=== PATIENT | male | born 1945 | race Caucasian/White ===

== ENCOUNTER 2019-08-08 13:59 | Emergency (ER) | payer MEDICARE, OTHER, SELFPAY ==
[2019-08-08] VITALS (9 sets, daily range): BP systolic 141–165; BP diastolic 49–90; PULSE 77–88; RESP 15–22; TEMP 36.5–36.7; O2SAT 91–96; BMI 36.0
--- NOTE | 2019-08-08 14:40 | EKG12_ITS ---
Test Reason : DYSRHYTHMIA Blood Pressure : / mmHG Vent. Rate : 075 BPM Atrial Rate : 075 BPM P-R Int : 196 ms QRS Dur : 178 ms QT Int : 440 ms P-R-T Axes : 041 002 175 degrees QTc Int : 491 ms Sinus rhythm with Premature atrial complexes in a pattern of bigeminy Left bundle branch block Abnormal ECG Confirmed by BO ZACARIAS, KALPANA ([id number]), field map editor PRINCESS GOMEZ ([id number]) on 08/11/2019 11:33:58 AM Referred By: TAMICA Confirmed By:KALPANA SORIANO MD
--- NOTE | 2019-08-08 14:44 | ED.VISSUMM ---
- ER Visit Summary Date of Service: 08/08/19 Chief Complaint: Cough and shortness of breath History of Present Illness: The patient is a 74 M history of hypertension high cholesterol. Prior pneumonia. Patient states for 1 week he has had primarily nonproductive cough at times it is clear phlegm. Denies any fever or chills. No chest pain. No pleuritic chest pain. He does state he has shortness of breath. Is making it more difficult for him to sleep. He denies any leg swelling or leg pain. No history of DVT or PE. No recent travel, surgery or immobilization. His last hospitalization was in January. At that time he had bilateral pneumonia. Physical Examination: Elderly male vital signs are stable on oxygen is 96%. No hypoxia on oxygen. HEENT exam unremarkable. Moist with membranes. Neck nontender no JVD. Lungs dry cough with prolonged expiratory phase and expiratory wheezing. No rales or rhonchi. Equal symmetrical. Heart regular rhythm rate about 80 no murmur. Abdomen is obese but soft nontender normal bowel sounds no peritoneal signs. Extremities moves all 4. Calves nontender without edema or cords. Neurologically she is awake and alert with no focal motor deficits. Test Results: EKG shows a sinus rhythm with PACs and a left bundle branch block. Chest x-ray 2 view read by myself shows no acute abnormality. Chronic changes. No pneumonia. CBC White count 8. Hemoglobin 12. No bands. Chemistries unremarkable normal creatinine and gap. Troponin normal. Emergency Department Course and Treatment: Gentleman with clinically what appears to be a respiratory tract infection with expiratory wheezing. Will be treated with aerosols both DuoNeb and albuterol. P.o. prednisone and have screening labs along with an EKG and chest x-ray performed. Also p.o. Zithromax. Repeat exam at 1555 patient is doing well. He was treated with aerosols and p.o. prednisone. Currently his wheezing is resolved. States he is feeling better. Both he and his account with him being discharged home. Treatment Plan: Prednisone 40 mg a day for 1 week. He has an inhaler at home. Zithromax Z-NETO first dose given in the ER. Follow-up with his doctor return if worse. Disposition: Discharge Impression: Acute bronchitis with bronchospasm This note was generated with [employer] software. It may contain incorrect words, spelling, and punctuation that were not noted in review of the chart prior to signing ED Disposition - Plan for ED Patient: Referrals: Dustin Stevenson MD [Primary Care Provider] -
[2019-08-08] MEDS: Ipratropium/Albuterol Sulfate 3 ML AMPUL.NEB INHALATION (14:51)
[2019-08-08] MEDS: Albuterol 2.5 MG/3 ML VIAL.NEB. INHALATION ×3 (14:51)
[2019-08-08 14:58] LABS: Absolute Lymphocyte Count 4.11 X10^3/uL (0.83-4.51); Absolute Neutrophil Count 3.6 X10^3/uL (2.0-7.7); Basophil# 0.03 X10^3/uL; Basophil% 0.4 % (0-1); Eosinophil# 0.12 X10^3/uL; Eosinophils% 1.4 % (0-5); Hematocrit 37.5 % (40-54); Hemoglobin 12.6 g/dL (13.0-16.5); Lymphocyte # 4.11 X10^3/ul (4.0); Lymphocyte % 48.1 % (19-41); Mean Corp Hgb Conc 33.6 g/dL (32-36); Mean Corpuscular Hgb 32.2 pg (27.0-32.0); Mean Corpuscular Volume 95.9 fL (80-94); Mean Platelet Vol. 7.5 fl (6.2-12.0); Monocyte# 0.66 X10^3/uL; Monocyte% 7.7 % (0-10); NRBC Flagged by Analyzer 0 % (0-5); Platelet Count 175 K/mm3 (150-450); RBC Distribution Width CV 12.2 % (11.6-14.6); RBC Distribution Width SD 42.5 fl (35.1-43.9); Red Blood Count 3.91 M/mm3 (4.6-6.2); White Blood Count 8.6 K/mm3 (4.4-11.0)
[2019-08-08] MEDS: predniSONE 20 MG Tablet 60 MG PO (15:03)
[2019-08-08 15:12] LABS: Anion Gap 8 (5-15); BUN 11 mg/dL (7-18); BUN/Creat Ratio 14.8 RATIO (10-20); Calcium,Total 9.3 mg/dL (8.5-10.1); Chloride 107 mmol/L (98-107); Creatinine, Serum 0.74 mg/dL (0.70-1.30); EST Glomerular Filtration Rate 109 mL/min (>60); Est Glom Filt Rate - Afr Amer 132 mL/min (>60); Glucose 160 mg/dL (74-106); Potassium 3.2 mmol/L (3.5-5.1); Sodium Level 143 mmol/L (136-145)
--- NOTE | 2019-08-08 15:30 | RAD_ITS ---
STUDY: X-RAY CHEST REASON FOR EXAM: Male, 74 years old. Short of breath TECHNIQUE: PA and lateral COMPARISON: None. FINDINGS: Lungs are hyperinflated and there is mild interstitial thickening in the lower lobes.. There is no demonstrated pleural abnormality. Normal size heart. Normal mediastinum and mary. Normal visualized pulmonary arteries. Tortuous aortic arch and descending thoracic aorta. Dorsal spine demonstrates mild spondylosis. Normal visualized ribs, clavicles, and shoulders. There is no demonstrated abnormality of the visualized soft tissue structures of the upper abdomen. RAD/Chest PA and Lateral IMPRESSION: COPD. No acute cardiopulmonary pathology Electronically Signed: Dustin Lopez MD at 16:52 EST , Service support ,
--- NOTE | 2019-08-08 16:02 | ED.DEP ---
ED Disposition - Plan for ED Patient: Disposition: Home or Assisted Living Instructions: BRONCHITIS, Antiobiotic Treatment (Adult) Prescriptions: Prednisone [Deltasone] 40 mg PO DAILY 7 Days #7 tab Prescription Printed Azithromycin [Zithromax] 250 mg PO DAILY #4 tab Prescription Printed Referrals: Dustin Stevenson MD [Primary Care Provider] - 3-5 Days Additional Instructions: Zithromax antibiotic 1 pill a day start tomorrow. First dose given here today in the ER. Prednisone 40 mg once a day start tomorrow first dose given in ER today. Use your inhaler 2 puffs every 2-4 hours as needed. Follow-up with your doctor if not improving return to ER feeling worse.
[2019-08-08] MEDS: Azithromycin 250 MG Tablet 500 MG PO (16:23)
--- NOTE | 2019-08-08 16:51 | ED.RN ---
pt ambulated with pulse ox and dropped to 87%. Dr Saldana notified and went into room to re-evaluate pt and was okay with discharging pt. Pt aware and okay with going home.
== END 2019-08-08 16:53 | disposition home or self-care (01) ==
PROVIDERS: Emergency Provider Emergency Medicine; Family Provider Family Medicine; PCP Family Medicine
DX: J44.0 Chronic obstructive pulmonary disease with (acute) lower respiratory infection (principal); J20.9 Acute bronchitis, unspecified; E78.00 Pure hypercholesterolemia, unspecified; I10 Essential (primary) hypertension; I44.7 Left bundle-branch block, unspecified; Z87.01 Personal history of pneumonia (recurrent)
CPT/HCPCS: 71046; 80048; 84484; 85025; 93005; 94640; 99251; 99285; G0463

== ENCOUNTER 2020-12-03 06:11 | Day surgery (SDC) | payer MEDICARE, OTHER, SELFPAY ==
[2020-11-15 13:20] VITALS: BMI 39.9
[2020-12-03] VITALS (7 sets, daily range): BP systolic 114–157; BP diastolic 59–79; PULSE 65–94; RESP 16–18; TEMP 36.3–36.7; O2SAT 92–98; BMI 38.2
--- NOTE | 2020-12-03 | COLBX_PTH ---
PATIENT: TESS DIA LOC: EN U#:[id number] AGE/SX: 75/M ROOM: RE12/03/[address]: Dr. Kam Burrell MD : 1945 BED: DIS: 12/03/2020 SPEC #: [id number] RECD: 12/03/20 11:56 STATUS: MANUEL BONIFACIO #: [id number] GRISELDA: 12/03/20 00:[address]: Kam Burrell DEPT: SURGICAL PATHOLOGY RECD BY: Florentin Morillo ENTERED: 12/03/20 11:57 SP TYPE: COLON BX OTHR DR: Dr. Dustin Stevenson MD Tissues: A - Duodenum, NOS B - Gastric mucous membrane C - Esophageal mucous membrane D - Transverse colon Procedures: Surgery Specimen Level IV HEADER OPERATION: Colonoscopy, EGD ([facility] [place]) PRE-OP DIAGNOSIS: GERD, history colon polyps TISSUE SUBMITTED: A - Duodenum biopsy, B - Antrum biopsy for H. pylori and path, C - Distal esophagus biopsy, D - Mid transverse colon snare MICROSCOPIC DIAGNOSIS A. Duodenum, biopsy: Minimal nonspecific chronic inflammation. B. Gastric antrum, biopsy: Mild chronic gastritis. See comment. C. Distal esophagus, biopsy: Fragment of benign squamous mucosa. No evidence of inflammation. D. Mid transverse colon, biopsy: Tubular adenoma. AM:sho 12/06/2020 COMMENT B. The results of immunohistochemistry for Helicobacter pylori will be reported separately ([id number]). MICROSCOPIC DESCRIPTION Slides are reviewed. GROSS DESCRIPTION A - Received in fixative is one container labeled with the patient's name and designated duodenum biopsy. The specimen consists of one irregular fragment of light hodge soft tissue that measures 0.3 x 0.3 x 0.1 cm. The specimen is totally submitted in one cassette. B - Received in fixative is one container labeled with the patient's name and designated antrum biopsy. The specimen consists of one irregular fragment of light hodge soft tissue that measures 0.3 x .2 x 0.1 cm. The specimen is totally submitted in one cassette. C - Received in fixative is one container labeled with the patient's name and designated distal esophagus biopsy. The specimen consists of one irregular fragment of light hodge soft tissue that measures 0.7 x 0.3 x 0.1 cm. The specimen is totally submitted in one cassette. D - Received in fixative is one container labeled with the patient's name and designated mid transverse biopsy. The specimen consists of two irregular fragments of light hodge soft tissue that in aggregate measure 0.6 x 0.3 x 0.1 cm. The specimen is totally submitted in one cassette. / SJ:rg 12/03/20 TC:3 CPT: 03251 x4
--- NOTE | 2020-12-03 06:21 | PCM.HP.BLA ---
Problem List (1) Personal history of colonic polyps Status: Acute (2) Gastroesophageal reflux disease Status: Acute Qualifiers: History and Physical Date of Admission: 12/03/20 Intake Visit Reasons: CSCOPE, EGD, DUE 5 YEARS Chief Complaint: consult for EGD/c-scope Eye Specialist Required: No Is patient in pain?: No Allergies No Known Allergies Allergy (Verified 11/15/20 13:21) Medications Aspirin [Aspir 81] 81 mg PO DAILY 08/08/19 [History Confirmed 11/15/20] Atorvastatin Calcium [Lipitor] 40 mg PO QHS 08/08/19 [History Confirmed 11/15/20] Cetirizine HCl [Zyrtec] 10 mg PO DAILY 08/08/19 [History Confirmed 11/15/20] Ferrous Sulfate 325 mg PO DAILY 08/08/19 [History Confirmed 11/15/20] Finasteride 5 mg PO DAILY 08/08/19 [History Confirmed 11/15/20] Gabapentin [Neurontin] 900 mg PO BIDCM 08/08/19 [History Confirmed 11/15/20] Lisinopril 40 mg PO DAILY 08/08/19 [History Confirmed 11/15/20] Naproxen [Naprosyn] 500 mg PO BID PRN PRN 08/08/19 [History Confirmed 11/15/20] Omeprazole [Prilosec] 20 mg PO DAILY 08/08/19 [History Confirmed 11/15/20] Proventil Hfa 08/08/19 [History Confirmed 11/15/20] Saw [place] 80 mg TID 08/08/19 [History Confirmed 11/15/20] Terazosin HCl 10 mg PO QHS 08/08/19 [History Confirmed 11/15/20] amlodipine 5 mg tablet 10 mg PO DAILY tab 11/15/20 [History Confirmed 11/15/20] ascorbic acid (vitamin C) 1,000 mg tablet 1 g PO BID tab 11/15/20 [History Confirmed 11/15/20] cholecalciferol (vitamin D3) 100 mcg (4,000 unit) capsule 100 mcg PO DAILY 11/15/20 [History] escitalopram oxalate 10 mg tablet 10 mg PO DAILY 11/15/20 [History Confirmed 11/15/20] fluticasone propionate 50 mcg/actuation nasal spray,suspension 2 spray INTRANASAL DAILY PRN 11/15/20 [History Confirmed 11/15/20] omega-3 fatty acids-fish oil 360 mg-1,200 mg capsule 1 cap PO BID 11/15/20 [History Confirmed 11/15/20] [facility] Medical History Arthritis (Acute) GERD (gastroesophageal reflux disease) (Acute) Heart murmur (Acute) Hemorrhoids (Acute) History of back problems (Acute) History of colon polyps (Acute) Sleep apnea (Acute) Hypertension (Chronic) Family History (Updated 11/15/20 @ 13:19 by Shannon Gil) Mother Hypertension Father CVA (cerebral vascular accident) Social History (Updated 11/15/20 @ 13:[address] Kam Burrell MD) Smoking Status: Never smoker alcohol intake: never substance use type: does not use HPI HPI HPI: TESS DIA, is a 75 M who presents to the office today for surgical consultation regarding chronic gastroesophageal reflux disease as well as a personal history of colon polyps. The patient is referred by Renée Page CNP and a written copy of my surgical consult and recommendations will return to her. The patient does have some memory deficit. He has been on long-term proton pump inhibitors. Most recent upper endoscopy December [address] Gianluca Meredith. Erythematous to adenopathy was identified at that time. Colonoscopy was performed the same day. Diverticulosis was identified. The patient has had a previous history of colon polyps prior to that. He denies history of colon cancer. No family history of colon cancer. His medications include iron supplementation and Lipitor and omega-3 fatty acid and enteric-coated aspirin as well as his omeprazole 20 mg daily. He is on lisinopril 40 mg daily. He denies any hospitalization over the past year. He denies any weight loss. He has not noticed any bright red blood per rectum or melena. He denies any current problems with abdominal pain. He otherwise states that his health is relatively stable. He gets a combination of his health care via the [place] [facility] as well as private care physician Dr. Dustin Stevenson. Recent laboratory does not demonstrate any anemia. Lipid panel slightly abnormal. BMI is 40 HPI HPI HPI: TESS DIA, is a 75 M who presents to the office today for ROS General General: No weight change, appetite, fatigue, colon cancer, breast cancer or weakness HEENT HEENT: Yes eye surgery; no difficulty swallowing, eye injury, swollen glands or hoarseness Endo Endocrine: No thyroid disease, diabetes mellitus, thyroid cancer, Hair loss, heat intolerance or cold intolerance Skin Skin: Yes changing moles; no rash Breast Breast: No left breast lump, right breast lump, nipple discharge, breast pain, abnormal mammogram, abnormal US or breast enlargement Musc Musculoskeletal: Yes back problems and arthritis; no rheumatoid arthritis, gout or joint pain Cardio Cardiovascular: Yes murmur and high blood pressure; no pacemaker, heart disease, atrial fibrillation, heart attack, heart stent, palpitations, shortness of breat with exertion or chest pain Psych Psychiatric: No depression, anxiety or hearing voices Resp Respiratory: No shortness of breath, Yes sleep apnea, No cough, No COPD, No asthma, No emphysema, No wheezing Gastro Gastrointestinal: No abdominal pain, No nausea or vomiting, No diarrhea, No constipation, No blood in stool, No acid reflux, Yes hemorrhoids, No ulcers, No gallbladder problem, No black,tarry stools Rogelio Hematologic: No blood thinners, No blood disorders, No bleeding, No anemia, No blood clots Neuro Neurologic: No system reviewed and no additional complaints, except as docu, No as per HPI, No abnormal walking, No abnormal hearing, No abnormal movements, No abnormal speech, No behavioral changes, No burning sensations, No confusion, No seizure-like activity, No unsteadiness, No dizziness, No localized weakness, No frequent falls, No headache(s), No lack of coordination, No loss of vision, No memory loss, No numbness, No other visual disturbances, No radiating pain, No restless legs, No sensory deficit, No fainting, No tingling, No tremor(s), No weakness, No other Exam Const General: cooperative, comfortable, no acute distress Nutritional Appearance: obese morbidly obese Orientation: alert, awake [facility] Head: normal to inspection Neck Neck: normal visual inspection Chest Chest palpation & inspection: normal inspection of the chest Breast Palpation: No nipple discharge Resp Effort & Inspection: normal respiratory effort Auscultation: clear to auscultation bilaterally Cardio Rate: regular rate Rhythm: regular rhythm Heart Sounds: murmur GI Palpation: soft Auscultation: normal bowel sounds Musc Cervical Spine: normal cervical lordosis Skin General: no rashes or lesions noted Neuro General: alert, awake Extrem Other: Mild nonpitting bilateral lower extremity swelling Psych Appearance: grossly normal Assessment & Plan Problems 1. Gastroesophageal reflux disease, unspecified whether esophagitis present K21.9 2. Personal history of colonic polyps Z86.010 Plan 75-year-old gentleman. He does admit that his memory is waning. He states that he takes his medicines because that is what he is instructed to do. I think it is reasonable to offer him a combined esophagogastroduodenoscopy with possible biopsy and colonoscopy with possible biopsy or polypectomy as indicated. I described the technique, benefit, risk, alternatives. He does have some medical comorbidities. I would want to use monitored anesthesia care. We would want to use an adult colonoscope. He has had an opportunity to ask no questions answered. We will schedule procedure at his discretion. I appreciate the opportunity of assisting with his surgical care. Copy: Renée Page CNP and Dr. Dustin Stevenson and [facility] Kam Burrell M.D., F.A.C.S. Coding Level of Care Code 81240 Diagnoses Gastroesophageal reflux disease, unspecified whether esophagitis present K21.9 ??Esophagitis presence: esophagitis presence not specified Personal history of colonic polyps Z86.010 I have re-examined the patient. There are no clinical changes since date of exam. Procedure Criteria Procedure Type: Elective COVID Risk Discussion: The surgeon/proceduralist and patient have discussed in detail the risk of exposure to and/or potential harm posed by the COVID-19 virus with having a surgery/procedure at this time versus the risk of delaying the surgery/procedure. It is not possible to know either the risk of delaying the surgery or procedure or chance of getting an infection with perfect accuracy, but a joint decision was made between the patient and the surgeon/proceduralist to proceed at this time with the scheduled surgery/procedure as indicated on the consent form.
[2020-12-03] MEDS: Lactated Ringers 1,000 ML 100 ML IV (07:14)
--- NOTE | 2020-12-03 08:00 | IMM_PTH ---
PATIENT: TESS DIA LOC: EN U#:[id number] AGE/SX: 75/M ROOM: RE12/03/[address]: Dr. Kam Burrell MD : 1945 BED: DIS: 12/03/2020 SPEC #: [id number] RECD: 12/03/20 12:07 STATUS: MANUEL REJessie #: [id number] GRISELDA: 12/03/20 08:[address]: Kam Burrell DEPT: IMMUNOHISTOCHEMISTRY RECD BY: Lisset Thurston ENTERED: 12/03/20 12:07 SP TYPE: IMMUNO OTHR DR: Dr. Dustin Stevenson MD Tissues: B - Stomach, NOS Procedures: H Pylori (initial) PHYSICIAN & INSTITUTION [place] [id number] SPECIMEN INFORMATION: Tissue Source: B - Antrum biopsy Clinical Info: GERD, history colonic polyps Specimen Number: [id number] CPT code: 96660 METHODOLOGY: Deparaffinized sections of prefer/formalin-fixed tissue or PAP/DQ stained slides are incubated with monoclonal/polyclonal antibodies/oligonucleotide probes. Localization is made via biotin free immunoperoxidase method. Appropriate controls are performed and reacted as expected. Results on target cell population are indicated in the following table: RESULTS: ANTIBODY / CLONE RESULT Block B H Pylori (polyclonal) negative These tests were developed and their performance characteristics determined by [facility]. They may not have been cleared or approved by the U.S. Food and Drug Administration. The FDA has determined that such clearance or approval is not necessary. INTERPRETATION: B. Antrum biopsy: Negative for Helicobacter pylori organisms. AM:sho 12/06/2020
--- NOTE | 2020-12-03 08:40 | OP.CCLET_ITS ---
12/03/2020 Dustin Stevenson MD Re : Upper GI endoscopy procedure for Tamir Rossi Dear Dr. Stevenson This procedure was performed on Thursday, December 03, 2020. My impressions and recommendations are as follows: Impressions : - Reflux esophagitis. Biopsied. - Moderate hiatal hernia. - Erythematous mucosa in the antrum. Biopsied. - Erythematous duodenopathy. Biopsied. Recommendations : - Discharge patient to home. - Resume previous diet. - Continue present medications. - Telephone my office for pathology results in 1 week. My findings are described in the full procedure note, which is enclosed. If I can be of further assistance, please feel free to contact me at Doctor phone number(s): Work: . Sincerely, Kam Burrell MD 12/03/2020 8:40:08 AM This report has been signed electronically.
--- NOTE | 2020-12-03 08:40 | OP.EGD_ITS ---
Patient Name: Tamir Rossi Procedure Date: 12/03/2020 7:57 AM Date of : 1945 Age: 75 Procedure: Upper GI endoscopy Indications: Heartburn Providers: Kam Burrell MD Referring MD: Dustin Stevenson MD Medicines: See the Anesthesia note for documentation of the administered medications Complications: No immediate complications. Procedure: Pre-Anesthesia Assessment: - Prior to the procedure, a History and Physical was performed, and patient medications and allergies were reviewed. The patient's tolerance of previous anesthesia was also reviewed. The risks and benefits of the procedure and the sedation options and risks were discussed with the patient. All questions were answered, and informed consent was obtained. Prior Anticoagulants: The patient has taken no previous anticoagulant or antiplatelet agents. ASA Grade Assessment: II - A patient with mild systemic disease. After reviewing the risks and benefits, the patient was deemed in satisfactory condition to undergo the procedure. After obtaining informed consent, the endoscope was passed under direct vision. Throughout the procedure, the patient's blood pressure, pulse, and oxygen saturations were monitored continuously. The gastroscope was introduced through the mouth, and advanced to the second part of duodenum. The upper GI endoscopy was accomplished without difficulty. The patient tolerated the procedure well. Scope In: 8:07:27 AM Scope Out: 8:11:18 AM Total Procedure Duration Time 0 hours 3 minutes 51 seconds Findings: Esophagitis with no bleeding was found 44 cm from the incisors. Biopsies were taken with a cold forceps for histology. A moderate hiatal hernia was present. Diffuse mildly erythematous mucosa without bleeding was found in the gastric antrum. Biopsies were taken with a cold forceps for histology. Diffuse mildly erythematous mucosa without active bleeding and with no stigmata of bleeding was found in the duodenal bulb. Biopsies were taken with a cold forceps for histology. Impression: - Reflux esophagitis. Biopsied. - Moderate hiatal hernia. - Erythematous mucosa in the antrum. Biopsied. - Erythematous duodenopathy. Biopsied. Recommendation: - Discharge patient to home. - Resume previous diet. - Continue present medications. - Telephone my office for pathology results in 1 week. Procedure Code(s): --- Professional --- 97641, Esophagogastroduodenoscopy, flexible, transoral; with biopsy, single or multiple Diagnosis Code(s): --- Professional --- K21.0, Gastro-esophageal reflux disease with esophagitis K44.9, Diaphragmatic hernia without obstruction or gangrene K31.89, Other diseases of stomach and duodenum R12, Heartburn CPT copyright 2017 [employer]. All rights reserved. The codes documented in this report are preliminary and upon broadcast operations engineer review may be revised to meet current compliance requirements. Kam Burrell MD 12/03/2020 8:40:08 AM This report has been signed electronically. Number of Addenda: 0 Note Initiated On: 12/03/2020 7:57 AM
--- NOTE | 2020-12-03 08:44 | OP.COLON_ITS ---
Patient Name: Tamir Rossi Procedure Date: 12/03/2020 8:12 AM Date of : 1945 Age: 75 Procedure: Colonoscopy Indications: High risk colon cancer surveillance: Personal history of colonic polyps Providers: Kam Burrell MD Referring MD: Dustin Stevenson MD Medicines: See the Anesthesia note for documentation of the administered medications Patient Profile: Last Colonoscopy: December 2015. Complications: No immediate complications. Procedure: Pre-Anesthesia Assessment: - Prior to the procedure, a History and Physical was performed, and patient medications and allergies were reviewed. The patient's tolerance of previous anesthesia was also reviewed. The risks and benefits of the procedure and the sedation options and risks were discussed with the patient. All questions were answered, and informed consent was obtained. Prior Anticoagulants: The patient has taken no previous anticoagulant or antiplatelet agents. ASA Grade Assessment: II - A patient with mild systemic disease. After reviewing the risks and benefits, the patient was deemed in satisfactory condition to undergo the procedure. After I obtained informed consent, the scope was passed under direct vision. Throughout the procedure, the patient's blood pressure, pulse, and oxygen saturations were monitored continuously. The colonoscope was introduced through the anus and advanced to the cecum, identified by appendiceal orifice and ileocecal valve. The colonoscopy was somewhat difficult due to a tortuous colon. Successful completion of the procedure was aided by applying abdominal pressure. The patient tolerated the procedure well. The quality of the bowel preparation was adequate to identify polyps. The ileocecal valve and the appendiceal orifice were photographed. Scope In: 8:14:04 AM Scope Withdrawal Time 0 hours 14 minutes 45 seconds Scope Out: 8:36:11 AM Total Procedure Duration Time 0 hours 22 minutes 7 seconds Findings: Hemorrhoids were found on perianal exam. A 5 mm polyp was found in the mid transverse colon. The polyp was sessile. The polyp was removed with a cold snare. Resection and retrieval were complete. Multiple diverticula were found in the sigmoid colon and descending colon. There was a small lipoma, in the proximal transverse colon. Impression: - Hemorrhoids found on perianal exam. - One 5 mm polyp in the mid transverse colon, removed with a cold snare. Resected and retrieved. - Diverticulosis in the sigmoid colon and in the descending colon. - Small lipoma in the proximal transverse colon. Recommendation: - Discharge patient to home. - Resume previous diet. - Continue present medications. - Repeat colonoscopy in 5 years for surveillance based on pathology results. - Telephone my office for pathology results in 1 week. Procedure Code(s): --- Professional --- 59157, Colonoscopy, flexible; with removal of tumor(s), polyp(s), or other lesion(s) by snare technique Diagnosis Code(s): --- Professional --- Z86.010, Personal history of colonic polyps K64.9, Unspecified hemorrhoids D12.3, Benign neoplasm of transverse colon (hepatic flexure or splenic flexure) D17.5, Benign lipomatous neoplasm of intra-abdominal organs K57.30, Diverticulosis of large intestine without perforation or abscess without bleeding CPT copyright 2017 [employer]. All rights reserved. The codes documented in this report are preliminary and upon employee communications manager review may be revised to meet current compliance requirements. Kam Burrell MD 12/03/2020 8:43:54 AM This report has been signed electronically. Number of Addenda: 0 Note Initiated On: 12/03/2020 8:12 AM
--- NOTE | 2020-12-03 08:44 | OP.CCLET_ITS ---
12/03/2020 Dustin Stevenson MD Re : Colonoscopy procedure for Tamir Rossi Dear Dr. Stevenson This procedure was performed on Thursday, December 03, 2020. My impressions and recommendations are as follows: Impressions : - Hemorrhoids found on perianal exam. - One 5 mm polyp in the mid transverse colon, removed with a cold snare. Resected and retrieved. - Diverticulosis in the sigmoid colon and in the descending colon. - Small lipoma in the proximal transverse colon. Recommendations : - Discharge patient to home. - Resume previous diet. - Continue present medications. - Repeat colonoscopy in 5 years for surveillance based on pathology results. - Telephone my office for pathology results in 1 week. My findings are described in the full procedure note, which is enclosed. If I can be of further assistance, please feel free to contact me at Doctor phone number(s): Work: . Sincerely, Kam Burrell MD 12/03/2020 8:43:54 AM This report has been signed electronically.
--- NOTE | 2020-12-03 09:45 | SUR.PHASEII ---
pt may take baby aspirin tomorrow per dr alejo. pt aware.
== END 2020-12-03 09:47 | disposition home or self-care (01) ==
LOC: EN 06:12 → AC 06:12
PROVIDERS: PCP Family Medicine; Referring Provider Family Medicine; Visit Provider Surgery
PROC: 0DJD8ZZ Inspection of Lower Intestinal Tract, Via Natural or Artificial Opening Endoscopic (ICD-10-PCS; CPT 45378; principal; 2020-12-03 07:55)
DX: D12.3 Benign neoplasm of transverse colon (principal); D17.5 Benign lipomatous neoplasm of intra-abdominal organs; K57.30 Diverticulosis of large intestine without perforation or abscess without bleeding; K64.9 Unspecified hemorrhoids; K29.50 Unspecified chronic gastritis without bleeding; K29.80 Duodenitis without bleeding; K21.00 Gastro-esophageal reflux disease with esophagitis, without bleeding; K44.9 Diaphragmatic hernia without obstruction or gangrene; I10 Essential (primary) hypertension; E78.00 Pure hypercholesterolemia, unspecified; M19.90 Unspecified osteoarthritis, unspecified site; G47.30 Sleep apnea, unspecified; N40.0 Benign prostatic hyperplasia without lower urinary tract symptoms; Z85.820 Personal history of malignant melanoma of skin; Z87.442 Personal history of urinary calculi; Z79.1 Long term (current) use of non-steroidal anti-inflammatories (NSAID); Z87.19 Personal history of other diseases of the digestive system; Z86.010 Personal history of colon polyps; Z79.82 Long term (current) use of aspirin; Z79.899 Other long term (current) drug therapy
CPT/HCPCS: 43239; 45385; 87426; 88305; 88342; C9803; J7120

== ENCOUNTER → 2022-12-01 | Outpatient (CLI) | payer MEDICARE, OTHER, SELFPAY ==
--- NOTE | 2022-12-01 | FLU_PTH ---
[id number] AGE/SX: 77/M ROOM: RE12/01/[address]: Dr. Adiel Clark MD : 1945 BED: DIS: 12/01/2022 SPEC #: [id number] RECD: 12/01/22 16:50 STATUS: MANUEL REJessie #: [id number] GRISELDA: 12/01/22 00:[address]: Adiel Clark DEPT: CYTOLOGY RECD BY: Negrita Carrero ENTERED: 12/04/22 08:30 SP TYPE: Fluid OTHR DR: Dr. Dustin Stevenson MD Tissues: A - Thyroid gland, NOS B - Thyroid gland, NOS C - Thyroid gland, NOS D - Thyroid gland, NOS Procedures: Special Stain Group II Surgery Specimen Level IV Cytospin Fluid HEADER OPERATION: Fine needle aspiration left thyroid x2 PRE-OP DIAGNOSIS: Multinodular goiter TISSUE SUBMITTED: A ? Left lower thyroid fluid, B - Left lower thyroid x12 slides, C - Left mid thyroid fluid, D - Left mid thyroid x12 slides DIAGNOSIS CYTOLOGY A. Left lower thyroid nodule fluid, fine needle aspiration (cytospin and cell block): Negative for malignant cells. See comment. B. Left lower thyroid nodule, fine needle aspiration (smears): Nondiagnostic/unsatisfactory specimen. [place] Category I. See comment. C. Left mid thyroid nodule fluid, fine needle aspiration (cytospin and cell block): Consistent with benign follicular/colloid nodule with cystic changes, [place] Category II. Adequate for evaluation. See comment. D. Left mid thyroid nodule, fine needle aspiration (smears): Consistent with benign follicular/colloid nodule with cystic changes, [place] Category II. Adequate for evaluation. See comment. SJ:rg 12/05/2022 COMMENT A. The specimen is paucicellular and consists of rare benign follicular cells. B. The specimen is nondiagnostic due to lack of adequate number of follicular cells. The specimen consists of rare benign follicular cells and macrophages. Correlation with clinical, radiologic findings and appropriate follow up are necessary. CYTOLOGY STUDY Slides are reviewed. CYTOLOGY GROSS A - Received is 30 ml of cloudy light red fluid labeled with the patient's name and and designated per the requisition as left lower thyroid. Submitted for cytology preparation including cell block. B - Received are 12 smears labeled with the patient's name and designated per the requisition as left lower thyroid. Submitted for staining. C - Received is 25 ml of cloudy light red fluid labeled with the patient's name and and designated per the requisition as left mid thyroid. Submitted for cytology preparation including cell block. D - Received are 12 smears labeled with the patient's name and designated per the requisition as left mid thyroid. Submitted for staining. / sho 12/04/2022 TC:5 CPT: 16255 x4, 20010 x2
== END | disposition home or self-care (01) ==
LOC: LABSPEC 17:05
PROVIDERS: PCP Family Medicine; Referring Provider Surgery; Visit Provider Surgery
DX: E04.2 Nontoxic multinodular goiter (principal)
CPT/HCPCS: 88108; 88305; 88313

== ENCOUNTER → 2023-05-21 | Outpatient (CLI) | payer MEDICARE, OTHER, SELFPAY ==
--- NOTE | 2023-05-21 14:50 | SP.MBSS_ITS ---
Modified Barium Swallow Patient Information Study Date: 05/21/23 Study Time: 13:00 Direct Billable Minutes: 90 Total Minutes procedure & reportin Diagnosis: K21.9 - Gastro-esophageal reflux disease without esophagitis Referring Physician: Dustin Stevenson Reason for Referral: Objectively assess swallow function, risk for aspiration and to determine recommendations for LRD and compensatory strategies to improve safety of swallow. Medical History: Patient with relevant PMHx of GERD referred by Dr. Stevenson d/t concerns for aspiration. Patient reports occasional coughing with and without food and drink. Reports taking daily medication for reflux. Current Diet Ordered: Regular / Thin Dentition: WNL Mental Status: WNL Respiratory Status: Oxygenating on Room Air Penetration-Aspiration Scale Penetration-Aspiration Scale: OBJECTIVE ASSESSMENT OF SWALLOW FUNCTION (QUANTITATIVE ? PER TRIAL): PENETRATION / ASPIRATION SCALE (FELIX): 1 = does not enter airway 2 = enters airway/above vocal folds/ejected 3 = enters airway/above vocal folds/not ejected 4 = enters airway/contacts vocal folds/ejected 5 = enters airway/contacts vocal folds/not ejected 6 = enters airway/below vocal folds/ejected 7 = enters airway/below vocal folds/not ejected despite effort 8 = enters airway/below vocal folds/no effort VIDEOFLOROSCOPIC SCALE SCORE (FELIX): Grade I = aspiration of material that has penetrated into the laryngeal vestibule, intact cough reflex Grade II = aspiration < 10 % of the bolus, intact cough reflex Grade III = aspiration of < 10 % of the bolus, reduced cough reflex or aspiration of > 10 % of the bolus, intact cough reflex Grade IV = aspiration of > 10 % of the bolus, reduced cough reflex Penetration-Aspiration Scale Score Thin Liquid via teaspoon: Result: 1= does not enter airway Thin Liquid via teaspoon Trial 2: Result: 1= does not enter airway Thin Liquid via single sip from cup: Result: 1= does not enter airway Thin Liquid via sequential sips from cup: Result: 1= does not enter airway [place] Thick Liquid via single sip from cup: Result: 1= does not enter airway [place] Thick Liquid via single sip from cup: Result: 1= does not enter airway Pudding via teaspoon: Result: 1= does not enter airway Cookie: Result: 1= does not enter airway Thin Liquid via sequential sips from straw: Result: 2= enter airway/above vocal folds/ejected Oral Phase Labial Seal: No Labial Escape Tongue Control During Bolus Hold: Posterior escape of less than half of bolus Bolus Preparation/Mastication: Slow prolonged chewing/mashing with complete recollection Bolus Transport/Lingual Motion: Brisk tongue motion Oral Residue: Complete oral clearance Pharyngeal Phase Initiation of Pharyngeal Swallow: Bolus head in valleculae Soft Palate Elevation: No bolus between soft palate and pharyngeal wall Laryngeal Elevation: Comp. Superior move thyroid cart w/comp. apprx arytenoid cart-epig pet Anterior Hyoid Excursion: Complete anterior movement Epiglottic Movement: Complete inversion Laryngeal Vestibule Closure at Height of Swallow: Complete; no air/contrast in laryngeal vestibule Pharyngeal Stripping Wave: Present - complete Pharyngoesophageal Segment Opening: Complete distension and complete duration; no obstruction of flow Tongue Base Retraction: No contrast between tongue base and posterior pharyngeal wall Pharyngeal Residue: Complete pharyngeal clearance Esophageal Phase Esophageal Clearance: Complete clearance Diagnosis/Impression Diagnosis: Swallow Function WNL Impression: No significant findings. Patient w/ decreased bolus control w/ premature spillage of <1/2 of bolus to the vallecula. Patient demonstrated slow, but functional mastication of [place] cookie w/ timely AP transit and no oral residue. Adequate airway closure w/ trace penetration that was fully ejected observed w/ sequential sips of thin liquids via straw. No other penetration or aspiration was observed during the study. Timely esophageal clearance of pudding and cookie. Recommendations Diet: Regular Textures and Thin Liquids Compensatory Strategies: Small Bites, Small Sips, Alternate bites/solids and sips/liquids, Sitting upright and Remain sitting upright for 30 minutes after PO intake Recommend Repeat Modified Barium Swallow: No Need for Skilled Speech Therapy Services: No Education Completed: 1. Described result of evaluation. and 2. Pt understands evaluation & agrees with goals and treatment plan. Status Active ST Patient: Active Contact Information [facility] Speech Therapy:: Dejah Waterman M.A. [facility] Speech-Language Pathologist [facility] [address] [place] [address] [email or web address] [phone]
== END | disposition home or self-care (01) ==
LOC: RAD 12:22
PROVIDERS: PCP Family Medicine; Referring Provider Family Medicine; Visit Provider Family Medicine
DX: R13.12 Dysphagia, oropharyngeal phase (principal)
CPT/HCPCS: 74230; 92611